=== PATIENT | female | born 1940 | race Caucasian/White ===

== ENCOUNTER → 2020-02-02 09:41 | Outpatient (CLI) | payer MEDICARE, SELFPAY ==
--- NOTE | 2020-02-02 | DI.US.S_ITS ---
PROCEDURE: US CAROTID DOPPLER BI INDICATIONS: Occlusion and stenosis of left carotid artery TECHNIQUE: Color and pulse Doppler interrogation was performed of both carotid systems, with image documentation and velocity measurements. COMPARISON: [facility], , CAROTID ARTERY DOPPLER BILAT, 02/01/2016, 11:23. FINDINGS: Stenosis calculations are based on SRU (Society of Radiologists in Ultrasound) criteria. Right side: Brachial blood pressure: 154/90 mm Hg. Common carotid artery peak systolic velocity: 75 cm/sec. Internal carotid artery peak systolic velocity: 85 cm/sec. Internal carotid artery end diastolic velocity: 38 cm/sec. External carotid artery peak systolic velocity: 64 cm/sec. ICA/CCA peak systolic ratio: 1.1 . Moore scale imaging description: Minimal soft plaque Percent internal carotid artery stenosis: Less than 50% stenosis . Vertebral artery: Flow direction is antegrade. Left side: Brachial blood pressure: 150/88 mm Hg. Common carotid artery peak systolic velocity: 80 cm/sec. Internal carotid artery peak systolic velocity: 72 cm/sec. Internal carotid artery end diastolic velocity: 33 cm/sec. External carotid artery peak systolic velocity: 71 cm/sec. ICA/CCA peak systolic ratio: 0.9 . Moore scale imaging description: Minimal soft plaque Percent internal carotid artery stenosis: Less than 50% stenosis . Vertebral artery: Flow direction is antegrade. IMPRESSION: Less than 50% stenosis within the proximal internal carotid arteries bilaterally, no significant change from prior study in January of 2016. Dictated by: Ki Mcnamara M.D. on 02/02/2020 at 13:35 Approved by: Ki Mcnamara M.D. on 02/02/2020 at 13:39
== END ==
PROVIDERS: PCP Family Medicine; Referring Provider Family Medicine; Visit Provider Family Medicine
DX: I65.23 Occlusion and stenosis of bilateral carotid arteries (principal)
CPT/HCPCS: 93880

== ENCOUNTER → 2021-01-26 14:34 | Outpatient (CLI) | payer MEDICARE, SELFPAY ==
--- NOTE | 2021-01-26 | DI.US.S_ITS ---
PROCEDURE: US RENAL COMPLETE INDICATIONS: CHRONIC KIDNEY DISEASE STAGE 3 TECHNIQUE: Real-time scanning was performed of the kidneys and bladder, with image documentation. COMPARISON: None. FINDINGS: Kidneys: Right kidney is 8.4 cm in length. Cortical thickness 1.1 cm. Kidney is atrophic and hyperechoic but homogeneous. No hydronephrosis or shadowing calculi present. Focal hyperechoic nodule noted in the cortex measuring 4 mm. On the left, the kidney measures 9.2 cm in length and also appears atrophic. cortical thickness however is 1.4 cm. Slightly echogenic cortex. Small peripelvic cyst measures 8 mm. No shadowing calculi or hydronephrosis. Bladder: Pre-void bladder volume is 215 mL. Post-void residual is 18 mL. Pre-void images demonstrate no intraluminal masses or stones. On pre-void images, bilateral ureteral jets are noted with color Doppler interrogation. (Of note, ureteral jets may not be detectable in up to 25% of cases due to insufficient differences in specific gravity between ureteral and bladder urine). Miscellaneous: No free pelvic fluid. IMPRESSION: Mild bilateral renal atrophy and echogenic cortex reflecting medical right renal disease. No hydronephrosis or shadowing calculi. Echogenic 4 mm nodule in the right renal cortex may reflect small angiomyolipoma. Dictated by: Boom Gupta M.D. on 01/26/2021 at 16:28 Approved by: Boom Gupta M.D. on 01/26/2021 at 16:31
== END ==
PROVIDERS: PCP Family Medicine; Referring Provider Family Medicine; Visit Provider Family Medicine
DX: N18.30 Chronic kidney disease, stage 3 unspecified (principal); N28.9 Disorder of kidney and ureter, unspecified
CPT/HCPCS: 76770

== ENCOUNTER → 2021-10-25 12:21 | Outpatient (CLI) | payer MEDICARE, SELFPAY ==
[2021-10-25 13:09] LABS: Add Manual Diff / Slide Review NO; Basophils Absolute Auto 100 /uL (0-100); Basophils Percent Auto 0.9 % (0-2); Eosinophils Absolute Auto 100 /uL (0-450); Hematocrit 38.7 % (36-46); Hemoglobin 13.4 g/dL (12.0-16.0); Lymphocytes Absolute Auto 1800 /uL (1100-4500); Lymphocytes Percent Auto 23.6 % (25-40); Mean Corpuscular HGB Conc 34.6 % (30-36); Mean Corpuscular Hemoglobin 31.8 PG (26-34); Monocytes Absolute Auto 600 /uL (0-900); Neutrophils Absolute Auto 5000 /uL (1500-7000); Neutrophils Percent Auto 66.5 % (50-75); Platelet Count 295 X10^3/uL (150-400); Red Blood Cell Count 4.21 X10^6/uL (4.0-5.2); Red Cell Distribution Width 13.5 % (11.6-14.8); White Blood Cell Count 7.5 X10^3/uL (4.5-11.0)
[2021-10-25 13:18] LABS: Hemoglobin A1C% w Est Avg Glu 5.8 % (4.0-6.0)
[2021-10-25 13:29] LABS: Alanine Aminotransferase 16 IU/L (<35); Albumin 4.3 g/dL (3.5-5.0); Albumin Globulin Ratio 1.4 (1.0-2.8); Alkaline Phosphatase 60 U/L (38-126); Aspartate Aminotransferase 26 IU/L (14-36); BUN Creatinine Ratio 20.3 (6-22); Bilirubin Total 0.6 mg/dL (0.2-1.3); Blood Urea Nitrogen 28 mg/dL (7-17); Calcium 9.5 mg/dL (8.4-10.2); Carbon Dioxide 28 mmol/L (22-32); Chloride 101 mmol/L (98-107); Estimated Glomerular Filt Rate 39 mL/min (>60); Globulin 3.1 g/dL (1.7-4.1); Glucose 95 mg/dL (80-110); HEMOLYSIS < 15 (0-50); Potassium 3.9 mmol/L (3.4-5.1); Sodium 138 mmol/L (137-145); Total Protein 7.4 g/dL (6.3-8.2)
[2021-10-26 05:29] LABS: Cholesterol HDL Ratio 2.6 ratio (0.0-4.4); Cholesterol,Total 126 mg/dL (100-199); HDL Cholesterol 48 mg/dL (>39); LDL Cholesterol Cal 56 mg/dL (0-99); Triglycerides 123 mg/dL (0-149); VLDL Cholesterol Cal 22 mg/dL (5-40)
== END ==
PROVIDERS: PCP Family Medicine; Referring Provider Family Medicine; Visit Provider Family Medicine
DX: E78.00 Pure hypercholesterolemia, unspecified (principal); R73.03 Prediabetes; I10 Essential (primary) hypertension
CPT/HCPCS: 36415; 80053; 80061; 83036; 85025

== ENCOUNTER → 2021-11-30 10:39 | Outpatient (CLI) | payer MEDICARE, SELFPAY ==
--- NOTE | 2021-11-30 | DI.US.S_ITS ---
PROCEDURE: US CAROTID DOPPLER BI INDICATIONS: Occlusion and stenosis of left carotid artery TECHNIQUE: Color and pulse Doppler interrogation was performed of both carotid systems, with image documentation and velocity measurements. COMPARISON: [facility], , CAROTID DOPPLER BI, 02/02/2020, 10:37. FINDINGS: Stenosis calculations are based on SRU (Society of Radiologists in Ultrasound) criteria. Right side: Brachial blood pressure: 124/79 mm Hg. Common carotid artery peak systolic velocity: 81 cm/sec. Internal carotid artery peak systolic velocity: 100 cm/sec. Internal carotid artery end diastolic velocity: 42 cm/sec. External carotid artery peak systolic velocity: 157 cm/sec. ICA/CCA peak systolic ratio: 1.2 . Moore scale imaging description: Common carotid artery intimal thickening. Mixed calcified and noncalcified sessile plaque in the carotid bulb extending into the proximal ICA. External carotid artery origin is irregular and subjectively narrowed due to noncalcified plaque. External carotid artery velocity is elevated. Internal carotid artery waveform is normal. Percent internal carotid artery stenosis: Less than 50% . Vertebral artery: Flow direction is antegrade. Left side: Brachial blood pressure: 119/80 mm Hg. Common carotid artery peak systolic velocity: 86 cm/sec. Internal carotid artery peak systolic velocity: 106 cm/sec. Internal carotid artery end diastolic velocity: 45 cm/sec. External carotid artery peak systolic velocity: 93 cm/sec. ICA/CCA peak systolic ratio: 1.2 . Moore scale imaging description: Common carotid intimal thickening. Moderate mixed calcified and noncalcified plaque in the carotid bulb extending into the internal carotid artery. External carotid artery origin is minimally irregular but patent. Internal and external carotid artery waveforms are normal. Percent internal carotid artery stenosis: Less than 50% . Vertebral artery: Flow direction is antegrade. IMPRESSION: 1. Stable, less than 50% stenoses of both internal carotid arteries. 2. Calcified and noncalcified plaque at the bulb causes mild subjective luminal stenosis. 3. Common carotid artery intimal thickening. 4. Development of right external carotid artery stenosis at the origin. 5. Antegrade vertebral artery flow bilaterally. Dictated by: Janett Link M.D. on 11/30/2021 at 12:57 Approved by: Janett Link M.D. on 11/30/2021 at 13:24
== END ==
PROVIDERS: PCP Family Medicine; Referring Provider Family Medicine; Visit Provider Family Medicine
DX: I65.23 Occlusion and stenosis of bilateral carotid arteries (principal); R00.2 Palpitations
CPT/HCPCS: 93880